=== PATIENT | male | born 1990 | race African-American/Black ===

== ENCOUNTER 2022-09-18 03:00 | Emergency (ER) | payer OTHER ==
[2022-09-18] MEDS ORDERED: Morphine 4 MG/ML Syringe IVPUSH ONE (03:42)
[2022-09-18] MEDS ORDERED: Sodium Chloride 0.9% 1,000 ML IV ONE (03:42)
[2022-09-18] MEDS ORDERED: Ondansetron 4 MG/2 ML SDV IVPUSH ONE (03:42)
[2022-09-18] MEDS ORDERED: Iopamidol 755 MG/ML 500 ML Multipack Bottle IVPUSH ONE (04:37)
[2022-09-18 04:42] LABS: CARBON DIOXIDE,CO2 27.7 mmol/L (21.0-32.0); POTASSIUM,K 3.8 mmol/L (3.5-5.1)
== END 2022-09-18 06:04 | disposition home or self-care (01) ==
LOC: MW.ED 03:00
DX: R51.9 Headache, unspecified (principal); M25.521 Pain in right elbow; R07.9 Chest pain, unspecified; M79.601 Pain in right arm; M25.561 Pain in right knee; Z91.013 Allergy to seafood; V49.40XA Driver injured in collision with unspecified motor vehicles in traffic accident, initial encounter; Y92.410 Unspecified street and highway as the place of occurrence of the external cause
CPT/HCPCS: 36415; 70450; 71260; 72125; 72128; 72131; 73080; 73562; 74177; 80053; 83690; 83735; 84484; 85025; 85610; 85730; 96361; 96374; 96375; 99284; J2270; J2405; J7030; Q9967

== ENCOUNTER 2022-12-12 17:58 | Emergency (ER) | payer OTHER | END 2022-12-12 20:09 | disposition home or self-care (01) | LOC: MW.ED 17:58 | DX: M25.561 Pain in right knee (principal); M25.521 Pain in right elbow; G89.29 Other chronic pain; Z91.018 Allergy to other foods; Z72.0 Tobacco use; V89.2XXA Person injured in unspecified motor-vehicle accident, traffic, initial encounter | CPT/HCPCS: 73080-26-RT; 73080-RT; 73562-26-RT; 73562-RT; 99283 ==